=== PATIENT | male | born 1990 | race Caucasian/White ===

== ENCOUNTER 2017-07-26 11:22 | Outpatient (CLI) | payer BC ==
--- NOTE | 2017-07-26 14:39 | Diagnostic Imaging Report ---
Indication: SOB Technique: 2 views of the chest Comparison: none. Findings: Lungs and pleural spaces are clear. Heart size is normal. Bones are unremarkable.. Impression: No acute process
== END 2017-07-26 13:22 | disposition home or self-care (01) ==
LOC: RAD 11:22
DX: R06.02 Shortness of breath (principal)
CPT/HCPCS: 71020